=== PATIENT | female | born 1960 | race Asian ===

== ENCOUNTER → 2017-06-01 | Day surgery (SDC) | payer BC, OTHER ==
--- NOTE | 2017-06-02 15:32 | PATH ---
Surgical Pathology Report Patient Name: NUZHAT LYNN [facility]. Rec. #: [id number] /Age/Gender: 1960 (Age: 56) / F Account: [id number] Location: [facility] Taken: 06/01/2017 Received: 06/01/2017 Reported: 06/02/2017 Physicians: Salvador Mazariegos M.D. Specimen(s) Received A: LEFT BREAST SPECIMEN WITH CALCIFICATIONS B: LEFT BREAST SPECIMEN WITHOUT CALCIFICATIONS Clinical History Mammographic findings: Microcalcification, suspicious Final Diagnosis A. LEFT BREAST, CALCIFICATION, STEREOTACTIC NEEDLE CORE BIOPSY: DUCTAL CARCINOMA IN SITU (DCIS), HIGH NUCLEAR GRADE, SOLID PATTERN WITH CENTRAL NECROSIS AND ASSOCIATED CALCIFICATION. Results of Estrogen Receptor (ER) and Progesterone Receptor (IN) studies performed on block "A" at [facility] are as follows: ER (clone [id number] mouse monoclonal antibody by Leica): 0% nuclear staining (Negative). IN (clone16 mouse monoclonal antibody by Leica): 0% nuclear staining (Negative). Positive and negative controls (internal if applicable) show appropriate results. Formalin fixation and cold ischemic times are within current ASCO/CAP recommendations for ER, IN and Her2 testing. B. LEFT BREAST, WITHOUT CALCIFICATION, STEREOTACTIC NEEDLE CORE BIOPSY: FOCAL DUCTAL CARCINOMA IN SITU (DCIS), HIGH NUCLEAR GRADE, SOLID PATTERN. Comment: Immunohistochemical stains on Specimen A for p63 and smooth muscle myosin heavy chain performed and interpreted at [facility] show preservation of the myoepithelial cell layer. Electronically Signed Roberto Monroy M.D. Gross Description A. Received in formalin, labeled "left breast with calcifications," are 5 means-yellow, cylindrical portions of fibroadipose tissue ranging from 1.1-2.8 cm. in length and averaging 0.3 cm. in diameter. The specimen is submitted in toto in one cassette. B. Received in formalin, labeled "left breast without calcifications," are 3 means-yellow, cylindrical portions of fibroadipose tissue ranging from 0.7-2.0 cm. in length and averaging 0.3 cm. in diameter. The specimen is submitted in toto in one cassette. Time to formalin fixation: 5 minutes Total formalin fixation time: Approximately 6 hours. 06/01/2017 [facility]06/01/2017
== END | disposition home or self-care (01) ==
LOC: FMAMMOTONE 10:10
PROVIDERS: ATTEND Surgery Surgical Oncology
PROC: 0HBX3ZX Excision of Left Nipple, Percutaneous Approach, Diagnostic (ICD-10-PCS; principal; 2017-06-01)
DX: D05.12 Intraductal carcinoma in situ of left breast (principal); R92.1 Mammographic calcification found on diagnostic imaging of breast
CPT/HCPCS: 19081; 87899; 88305-TC; 88341-TC; 88342-TC; A4648

== ENCOUNTER 2017-06-22 10:10 | Day surgery (SDC) | payer BC, OTHER ==
[2017-06-16 14:44] VITALS: BMI 24.8
--- NOTE | 2017-06-19 13:49 | HP ---
Admitting History and Physical - Primary Care Physician PCP: Salvador Mazariegos - Admission Chief Complaint: left breast cancer History of Present Illness: 56 yo female noted to have left deep 12 o'clock calcifications on screening mammo 05/24/2017 for which a stereo was recommended. Stereo was done on 2016 was c/w high nuclear grade DCIS ER- MO-. MRI was also done on 06/13/2017 and was c/w localized dz without multifocal or contralateral dz. Patient is now presenting for Left breast WE with NL, snbx with lymphoscintogram. History Source: Patient Limitations to Obtaining History: No Limitations - Past Medical History ...: No - Past Surgical History Additional Past Surgical History: left breast core bx (2002) which was negative - Smoking History Smoking history: Never smoked Have you smoked in the past 12 months: No - Alcohol/Substance Use Hx Alcohol Use: Yes (SOCIALLY) Home Medications - Allergies Allergies/Adverse Reactions: Allergies Allergy/AdvReac Type Severity Reaction Status Date / Time Penicillins Allergy Severe HIVES,RESPIRATORY Verified 06/16/17 14:46 DISTRESS cranberry Allergy Intermediate Rash Verified 06/16/17 15:07 squash Allergy Intermediate Rash Verified 06/16/17 14:46 - Home Medications Home Medications: Ambulatory Orders NK [No Known Home Medication] 06/16/17 Family Disease History - Family Disease History Family History: Unremarkable Review of Systems - Review of Systems Cardiovascular: reports: Shortness of Breath, Other (h/o of syncopal episodes) Physical Examination Constitutional: Yes: Well Nourished Breast(s): Yes: Other (C-cup breasts without skin changes or nipple discharge. No suspicious masses or adenopathy was noted bilaterally) Problem List - Problems (1) Ductal carcinoma in situ (DCIS) of left breast Code(s): D05.12 - INTRADUCTAL CARCINOMA IN SITU OF LEFT BREAST Assessment/Plan Plan: Left breast WE with NL, snbx, lymphoscintogram
[2017-06-22] MEDS ORDERED: LIDOCAINE HCL 1%, 10 MG/ML (20ML VIAL) ONE (13:42)
[2017-06-22] MEDS ORDERED: ISOSULFAN BLUE 10 MG/ML VIAL SQ ONE (13:42)
[2017-06-22] MEDS ORDERED: BUPIVACAINE HCL/PF 2.5 MG/ML - 30 ML VIAL IJ ONE (13:42)
[2017-06-22] MEDS ORDERED: MIDAZOLAM HCL 2 MG/2 ML SINGLE DOSE VIAL ONE (14:02)
[2017-06-22] MEDS ORDERED: SUCCINYLCHOLINE CHLORIDE 200 MG/10 ML VIAL ONE (14:09)
[2017-06-22] MEDS ORDERED: PROPOFOL 20 ML ONE (14:24)
[2017-06-22] MEDS ORDERED: oxyCODONE HCL 5 MG TABLET PO PRN (14:59)
[2017-06-22] MEDS ORDERED: ONDANSETRON 4 MG/2 ML VIAL IVPUSH PRN ×2 (14:59→16:16)
[2017-06-22] MEDS ORDERED: LACTATED RINGERS SOLUTION 1,000 ML IV SCH (15:00)
[2017-06-22] MEDS ORDERED: KETOROLAC TROMETHAMINE 30 MG/1 ML VIAL IVPUSH ONE (16:16)
[2017-06-22] MEDS ORDERED: DEXTROSE 5%-0.45% SALINE 1,000 ML IV SCH (16:30)
[2017-06-22] MEDS ORDERED: KETOROLAC TROMETHAMINE 30 MG/1 ML VIAL ONE (16:49)
[2017-06-22] MEDS ORDERED: ONDANSETRON 4 MG/2 ML VIAL ONE (16:52)
[2017-06-22 17:27] VITALS: TEMP 98
--- NOTE | 2017-06-22 18:18 | OP ---
DATE OF OPERATION: 06/22/2017 PREOPERATIVE DIAGNOSIS: Left breast ductal carcinoma in situ, overlapping regions. POSTOPERATIVE DIAGNOSIS: Left breast ductal carcinoma in situ, overlapping regions. PROCEDURE: Left breast partial mastectomy with mammographic needle localization and left axillary sentinel lymph node biopsy with tissue transfer closure. ANESTHESIA: General laryngeal mask airway anesthesia. PRIMARY SURGEON: Jaylene Mazariegos MD MEDICAL NURSE: NORMA Taylor COMPLICATIONS: None. INDICATIONS: Briefly, the patient is a 56-year-old, postmenopausal, female of [place] descent with a history of fibrocystic mastopathy, but no family history of breast or ovarian cancer. She had a benign left breast biopsy in 2002. She was found to have some new pleomorphic calcifications in the deep 12 o'clock region of the left breast and stereotactic biopsy showed high-grade DCIS, which was [id number]. MRI showed localized disease. She was advised to undergo a wide excision with a sentinel lymph node biopsy. DESCRIPTION OF PROCEDURE: She was brought in for the procedure on June 22, 2017, and first had a lymphoscintigraphy obtained at [facility] with a needle localization and was brought to the [place] holding area. In the holding area, site verification was made and informed consent was obtained. She was then brought into the operating room and laid on the OR table in the supine position. Venodynes were placed on the lower extremities prior to induction. She received 600 mg of clindamycin prior to incision due to PENICILLIN ALLERGY. Once she was properly anesthetized, her left breast was sterilely prepped and draped in the usual fashion. Then, 3 mL of Lymphazurin blue were injected intradermally and peritumorly around the needle localization site and massage was instituted. An incision was made just below the hair-bearing area of the left axilla and dissection was undertaken. Two sentinel nodes were easily found. The first sentinel node in the level 1 region was blue and hot with a 10-second gamma count of 1723 and the second sentinel node in the level 1 region was hot with a 10-second gamma count of 2427. Background count after removal of these 2 nodes was 241. There were no other blue or hot nodes found and these 2 nodes were sent for permanent section in formalin. Hemostasis was achieved and the axillary wound was closed using interrupted 2-0 plain suture and then interrupted 3-0 deep dermal Vicryl suture and a running 4-0 subcuticular Biosyn suture to close the skin. At this point, the wide excision was undertaken around the bracketed needle localization in the 12 o'clock region of the left breast. A small ellipse of skin was removed with the wide excision. Dissection was undertaken around the needle localization with the breast tissue completely removed from between the 2 wires. The breast tissue was completely removed all of the way down to the pectoralis major muscle intact with both wires. The specimen was oriented with a long lateral, short superior suture and specimen radiogram showed removal of the clip and calcification in question. Hemostasis was achieved and the wound was copiously irrigated. The specimen was sent in formalin to pathology. Separate margins were then taken on the superior, inferior, medial, lateral, and deep aspects with the suture marking the biopsy cavity side. The wound was then closed by performing a 4 x 3 cm tissue transfer closure by undermining the breast tissue and bringing it into the wound and reapproximating the breast tissue with 2-0 plain suture. The skin was closed using interrupted 3-0 deep dermal Vicryl suture and a running 4-0 subcuticular Biosyn suture. Mastisol and Steri-Strips were applied over the wound with a pressure dressing placed over this. The patient tolerated the procedure well without difficulty and laryngeal mask airway tube was removed at the end of the case. She will be recovered and discharged home the same day when the discharge criteria are met. All sponge and needle counts are correct at the end of the case. Estimated blood loss was about 20 mL. She will follow up in the office in 1 week for formal wound pathology check. JAYLENE MAZARIEGOS M.D. [id number]
[2017-06-22 20:00] VITALS: BP 129/72; PULSE 64
--- NOTE | 2017-06-27 15:21 | PATH ---
Surgical Pathology Report Patient Name: NUZHAT LYNN [facility]. Rec. #: [id number] /Age/Gender: 1960 (Age: 56) / F Account: [id number] Location: [facility] Taken: 06/22/2017 Received: 06/22/2017 Reported: 06/27/2017 Physicians: Salvador Mazariegos M.D. Specimen(s) Received A: LEFT SENTINEL LYMPH NODE #1 B: LEFT SENTINEL LYMPH NODE #2 C: LEFT BREAST WIDE EXCISION D: LEFT BREAST SUPERIOR MARGIN E: LEFT BREAST MEDIAL MARGIN F: LEFT BREAST LATERAL MARGIN G: LEFT BREAST INFERIOR MARGIN H: LEFT BREAST DEEP MARGIN Clinical History High grade DCIS Final Diagnosis A. LYMPH NODE, LEFT SENTINEL #1, EXCISION: ONE LYMPH NODE, NEGATIVE FOR METASTATIC CARCINOMA (0/1). B. LYMPH NODE, LEFT SENTINEL #2, EXCISION: ONE LYMPH NODE, NEGATIVE FOR METASTATIC CARCINOMA (0/1). C. BREAST, LEFT, WIDE EXCISION: DUCTAL CARCINOMA IN SITU (DCIS), SOLID TYPE, HIGH NUCLEAR GRADE WITH EXTENSIVE NECROSIS, AND ASSOCIATED CALCIFICATIONS WITH LOBULAR EXTENSION AND INVOLVING SCLEROSING ADENOSIS. (SEE NOTE) DCIS FORMS A MASS MEASURING 1.8 CM IN GREATEST DIMENSION, MICROSCOPICALLY, AND IS PRESENT IN FIVE OF SEVENTEEN SLIDES (5/17). SURGICAL MARGINS ARE UNINVOLVED BY DCIS; DCIS IS AT 8 MM FROM THE CLOSEST (DEEP) MARGIN. SEE SPECIMENS D-H FOR FINAL MARGINS. SKIN IS PRESENT AND IS UNINVOLVED BY DCIS. REMAINING BREAST TISSUE SHOWS ATYPICAL DUCTAL HYPERPLASIA (ADH), PROLIFERATIVE FIBROCYSTIC CHANGES INCLUDING USUAL DUCTAL HYPERPLASIA (UDH) WITH CYST FORMATION AND SCLEROSING ADENOSIS. PRIOR BIOPSY SITE CHANGES ARE PRESENT. PATHOLOGIC STAGE (pTNM): pTis (DCIS) pN0. SEE ALSO DCIS CASE SUMMARY BELOW. NOTE: Myoepithelial immunohistochemical markers (SMM-HC and p63, performed at [facility] on blocks C1 & C3) demonstrate the presence of myoepithelial cells in the foci of DCIS involving lobules and sclerosing adenosis. This finding supports the diagnosis and aids in ruling out the presence of invasion/microinvasion. D. BREAST, LEFT, SUPERIOR MARGIN, EXCISION: BENIGN FIBROADIPOSE TISSUE. E. BREAST, LEFT, MEDIAL MARGIN, EXCISION: BREAST TISSUE SHOWING FOCAL ATYPICAL DUCTAL HYPERPLASIA (ADH). F. BREAST, LEFT, LATERAL MARGIN, EXCISION: BENIGN BREAST TISSUE. G. BREAST, LEFT, INFERIOR MARGIN, EXCISION: BENIGN BREAST TISSUE SHOWING PROLIFERATIVE FIBROCYSTIC CHANGES INCLUDING FLORID USUAL DUCTAL HYPERPLASIA (UDH) WITH CYSTIC APOCRINE METAPLASIA AND SCLEROSING ADENOSIS. H. BREAST, LEFT, DEEP MARGIN, EXCISION: BENIGN FIBROADIPOSE TISSUE AND SKELETAL MUSCLE. Comments DCIS of Breast: Surgical Pathology Cancer Case Summary Based on AJCC/UICC TNM, 7th edition Procedure _X_ Excision with image-guided localization Lymph Node Sampling _X_ [place] lymph node(s) Specimen Laterality _X_ Left Estimated size (extent) of DCIS (greatest dimension using gross and microscopic evaluation): at least 1.8 cm and: Number of blocks with DCIS: 5 Number of blocks examined: 30 (based on specimens C-H) Nuclear Grade _X_ Grade III (high) Necrosis _X_ Present, central (expansive "comedo" necrosis) Microcalcifications _X_ Present in both DCIS and non-neoplastic tissue Margins _X_ Margin(s) uninvolved by DCIS Distance from closest margin: 8 mm from closest deep margin in wide excision C. Final deep margin H is negative for DCIS. Lymph Nodes Total number of nodes examined (sentinel and nonsentinel): 2 Number of sentinel nodes examined: 2 Lymph Node Involvement Number of lymph nodes with macrometastases (>2 mm): 0 Number of lymph nodes with micrometastases (>0.2 mm to 2 mm and/or >200 cells): 0 Number of lymph nodes with isolated tumor cells (=0.2 mm and =200 cells): 0 Pathologic Staging (pTNM) Primary Tumor (pT) _X_ pTis (DCIS): Ductal carcinoma in situ Regional Lymph Nodes (pN): pN0 Biomarker Studies Results of ER and NE studies performed on prior biopsy ([id number]) at [facility] are as follows: ER (clone [id number] mouse monoclonal antibody by Leica): 0 % nuclear staining (Negative). NE (clone16 mouse monoclonal antibody by Leica): 0 % nuclear staining (Negative). Electronically Signed Joanie Moreira M.D. Gross Description A. Received in formalin labeled "left sentinel node #1," is a 1.0 x 0.8 x 0.4 cm means-blue, irregular lymph node with attached fat. The specimen is bisected and entirely submitted in one cassette. B. Received in formalin labeled "left sentinel node #2," is a 0.7 x 0.5 x 0.3 cm means, irregular lymph node with attached fat. The specimen is submitted in toto in one cassette. C. Received in formalin, labeled "left breast wide excision," is a 4.8 x 4.8 x 4.0 cm. means-yellow, irregular, portion of fibroadipose tissue with 2 needle localization wires present. There is a short suture marking the superior aspect and a long suture marking the lateral aspect, per the surgeon. The anterior surface displays a 2.7 x 0.4 cm means, elliptical, unremarkable portion of skin. The specimen is inked as follows: Superior blue; inferior green; lateral red; medial yellow; deep black. The specimen is serially sectioned from medial to lateral. Sectioning reveals a previous hemorrhagic biopsy cavity surrounded by firm fibrous tissue measuring 2.0 x 1.8 x 1.2 cm at the lateral aspect of the specimen. The biopsy cavity contains a moe metallic biopsy clip. The remaining breast parenchyma displays abundant dense, white, focally firm fibrous tissue. Shaker Plate Operator sections are submitted in 17 cassettes as follows: 4-6-mwsvqigz biopsy cavity from area of clip with deep margin; 0-5-twfanowrcz fibrous tissue with deep margin; 8-89-wgyncxn tissue with inferior margin; 11-superior margin; 12-skin; 13-previous biopsy cavity with lateral margin; 99-21-hssxruamwu lateral margin; 01-41-tkadqk margin. Time to formalin fixation: Not given Total formalin fixation time: Approximately 24 hours D. Received in formalin labeled "left breast superior margin," is a 1.8 x 1.5 x 0.6 cm irregular portion of fibroadipose tissue with a suture marking the biopsy cavity side, per the surgeon. The new margin is inked blue and the specimen is serially sectioned. The specimen is entirely submitted in 2 cassettes. E. Received in formalin labeled "left breast medial margin," is a 3.0 x 1.3 x 0.5 cm irregular portion of fibroadipose tissue with a suture marking the biopsy cavity side, per the surgeon. The new margin is inked blue and the specimen is serially sectioned. The specimen is entirely and sequentially submitted in 4 cassettes. F. Received in formalin labeled "left breast lateral margin," is a 1.9 x 1.1 x 0.5 cm irregular portion of fibroadipose tissue with a suture marking the biopsy cavity side, per the surgeon. The new margin is inked blue and the specimen is serially sectioned. The specimen is entirely submitted in 2 cassettes. G. Received in formalin labeled "left breast inferior margin," is a 2.5 x 1.5 x 0.9 cm irregular portion of fibroadipose tissue the suture marking the biopsy cavity side, per the surgeon. The new margin is inked blue and the specimen is serially sectioned. The specimen is entirely submitted in 3 cassettes. H. Received in formalin labeled "left breast deep margin," is a 1.6 x 1.0 x 0.7 cm irregular portion of fibroadipose tissue with a suture marking the biopsy cavity side, per the surgeon. The new margin is inked blue and the specimen is serially sectioned. The specimen is entirely submitted in 2 cassettes. 06/23/2017 [facility]06/23/2017
== END 2017-06-22 19:55 | disposition home or self-care (01) ==
LOC: FASU 10:10
PROVIDERS: ATTEND Surgery Surgical Oncology
PROC: 0HBU0ZZ Excision of Left Breast, Open Approach (ICD-10-PCS; principal; 2017-06-22 14:31)
PROC: 07B60ZX Excision of Left Axillary Lymphatic, Open Approach, Diagnostic (ICD-10-PCS; 2017-06-22 14:31)
PROC: 0JX60ZB Transfer Chest Subcutaneous Tissue and Fascia with Skin and Subcutaneous Tissue, Open Approach (ICD-10-PCS; 2017-06-22 14:31)
DX: D05.12 Intraductal carcinoma in situ of left breast (principal)
CPT/HCPCS: 19281; 78195-TC; 88307-TC; 88341-TC; 88342-TC; 94760; A9541